=== PATIENT | male | born 1960 | race Two or more races ===

== ENCOUNTER 2016-09-09 18:37 | Inpatient (IN) | payer MEDICARE, MEDICAID ==
[~2016-09-09] VITALS: Ht 177.8 cm; Wt 149.0 kg
[~2016-09-09 18:37] MED LIST: AMPI500C59 PO; ATOR10TA PO; CARV25TA55 PO; CHOL10006 PO; CLON0.2D6 TD; FURO20TA3 PO; GABA-498 PO; HYDR500T13 PO; INSUINJ49 SC; LOR05T PO; LOSA100T27 PO; MAGN400C3 PO; METF-314 PO; OMEP20TA44 PO; Pantoprazole Sodium Sesquihydr PO; TIZA4CAP7 PO
[2016-09-09 21:48] LABS: Urine Bilirubin Negative (Negative); Urine Blood Negative /uL (Negative); Urine Color Yellow (Yellow); Urine Glucose TRACE mg/dL (Normal); Urine Hyaline Cast FEW /lpf (0 - 2); Urine Ketone Negative (Negative); Urine Mucus FEW (None Seen); Urine Nitrite Negative (Negative); Urine RBC 1 /hpf (0 - 3); Urine Squamous Epithelial Cell FEW /hpf (<5); Urine Urobilinogen Normal (Negative)
[2016-09-09 22:33] LABS: Basophils # (auto) 0.1 uL; Basophils % (auto) 0.5 % (0.0-2.0); DEFINITIVE VIEW TRANSMISSION; Eosinophils % (auto) 8.7 % (0.0-7.0); Hematocrit 36.6 % (41.0-53.0); Hemoglobin 11.9 g/dL (13.5-17.5); Lymphocytes # (auto) 2.8 uL; Lymphocytes % (auto) 23.6 % (10.0-50.0); Mean Corpuscular Hemoglobin 25.8 pg (28.0-32.0); Mean Corpuscular Hgb Conc. 32.4 g/dL (32.0-36.0); Mean Corpuscular Volume 79.7 fL (80.0-100.0); Mean Platelet Volume 8.7 fL (7.4-10.4); Monocytes # (auto) 0.6 uL; Monocytes % (auto) 5.3 % (0.0-12.0); Neutrophils # (auto) 7.4 uL; Neutrophils % (auto) 61.9 % (37.0-80.0); Platelet Count (auto) 302 10^3/uL (140-450); Red Cell Distribution Width 15.7 % (11.6-16.0); White Blood Cell 11.9 10^3/uL (4.4-10.8)
[2016-09-09] MEDS ORDERED: HYDROmorphone HCL 2 MG/ML VL IV ONE (23:00)
[2016-09-09] MEDS ORDERED: ONDANSETRON HCL 4 MG/2 ML VIAL IV ONE (23:00)
[2016-09-09 23:04] LABS: Albumin 3.2 g/dL (3.4-5.0); Bilirubin, Total 0.4 mg/dL (0.2-1.0); Calcium 9.3 mg/dL (8.5-10.1); Potassium 3.8 mmol/L (3.5-5.1); Total Protein 7.1 g/dL (6.4-8.2)
[2016-09-10] MEDS ORDERED: PROMETHAZINE HCL 25 MG/ML 1ML IV ONE (01:15)
[2016-09-10] MEDS ORDERED: HYDROmorphone HCL 2 MG/ML VL IV ONE (01:15)
[2016-09-10] MEDS ORDERED: ONDANSETRON HCL 4 MG/2 ML VIAL IV PRN (03:45)
[2016-09-10] MEDS ORDERED: HYDROcodone-ACET 5/325MG TAB PO PRN (03:45)
[2016-09-10] MEDS ORDERED: TEMAZEPAM 15 MG CAP PO PRN (03:45)
[2016-09-10] MEDS ORDERED: ACETAMINOPHEN 325 MG TAB PO PRN (03:45)
[2016-09-10] MEDS ORDERED: DEXTROSE (50%) 50ML SYRG IV PRN (03:45)
[2016-09-10] MEDS ORDERED: DOCUSATE SOD 100 MG CAP PO PRN (03:45)
[2016-09-10] MEDS ORDERED: cloNIDine HCL 0.1 MG TAB PO PRN (03:45)
[2016-09-10 04:50] VITALS: BP 125/79
[2016-09-10 05:00] VITALS: BP 125/79
[2016-09-10] MEDS: GABAPENTIN 400 MG CAP PO SCH ×3 (05:34→21:59)
[2016-09-10] MEDS: ACCU-CHEK COMFORT CURVE STRIP VI SCH ×4 (05:42→23:33)
[2016-09-10] MEDS: MORPHINE SULF INJ 2 MG/ML SYRINGE 1ML IV PRN ×4 (05:43→22:00)
[2016-09-10] MEDS: InsuLIN REG 1unit/0.01ml Soln (100units/ml) SC SCH ×3 (05:55→17:16)
[2016-09-10 09:02] VITALS: BP 114/62
[2016-09-10] MEDS: PANTOPRAZOLE 40 MG TAB PO SCH (09:37)
[2016-09-10] MEDS: ENOXAPARIN SOD 40 MG/0.4 ML SYRINGE SC SCH (09:37)
[2016-09-10] MEDS: ASPirin 81 mg TAB PO SCH (09:37)
[2016-09-10] MEDS: NITROFURANTOIN (MONO) 100 mg CAP PO SCH ×2 (09:37→21:59)
[2016-09-10] MEDS: LOSARTAN POTASSIUM 50 MG TAB PO SCH (09:38)
[2016-09-10] MEDS: CARVEDILOL 12.5 MG TAB PO SCH ×3 (09:39→21:58)
[2016-09-10] MEDS: FUROSEMIDE 20 MG TAB PO SCH (09:39)
[2016-09-10 12:54] VITALS: BP 148/97
[2016-09-10 16:55] VITALS: BP 139/81
[2016-09-10 20:14] LABS: Urine Bilirubin Negative (Negative); Urine Blood Negative /uL (Negative); Urine Color Yellow (Yellow); Urine Glucose TRACE mg/dL (Normal); Urine Ketone Negative (Negative); Urine Nitrite Negative (Negative); Urine RBC <1 /hpf (0 - 3); Urine Squamous Epithelial Cell FEW /hpf (<5); Urine Urobilinogen Normal (Negative)
[2016-09-10] MEDS: ATORVASTATIN 20 MG TAB PO SCH (21:59)
[2016-09-10 22:00] VITALS: BP 158/91
[2016-09-10] MEDS ORDERED: ATORVASTATIN 20 MG TAB PO SCH (22:00)
[2016-09-11] MEDS: InsuLIN REG 1unit/0.01ml Soln (100units/ml) SC SCH ×4 (00:10→17:53)
[2016-09-11 05:00] VITALS: BP 93/68
[2016-09-11] MEDS: GABAPENTIN 400 MG CAP PO SCH ×3 (05:15→22:21)
[2016-09-11] MEDS: ACCU-CHEK COMFORT CURVE STRIP VI SCH ×3 (05:25→17:03)
[2016-09-11] MEDS: MORPHINE SULF INJ 2 MG/ML SYRINGE 1ML IV PRN ×5 (05:34→22:23)
[2016-09-11 07:53] LABS: Basophils # (auto) 0.2 uL; DEFINITIVE VIEW TRANSMISSION; Eosinophils # (auto) 0.9 uL; Eosinophils % (auto) 9.6 % (0.0-7.0); Hematocrit 36.7 % (41.0-53.0); Hemoglobin 11.9 g/dL (13.5-17.5); Lymphocytes # (auto) 1.8 uL; Lymphocytes % (auto) 20.5 % (10.0-50.0); Mean Corpuscular Hemoglobin 25.9 pg (28.0-32.0); Mean Corpuscular Hgb Conc. 32.3 g/dL (32.0-36.0); Mean Corpuscular Volume 80.2 fL (80.0-100.0); Mean Platelet Volume 9.5 fL (7.4-10.4); Monocytes # (auto) 0.3 uL; Monocytes % (auto) 3.3 % (0.0-12.0); Neutrophils # (auto) 5.8 uL; Platelet Count (auto) 267 10^3/uL (140-450); Red Cell Distribution Width 14.7 % (11.6-16.0)
[2016-09-11 07:55] LABS: Basophils % (auto) 0.9 % (0.0-2.0); Neutrophils % (auto) 65.7 % (37.0-80.0)
[2016-09-11 08:05] LABS: Albumin 3.2 g/dL (3.4-5.0); BUN/Creatinine Ratio 21.8; Bilirubin, Total 0.6 mg/dL (0.2-1.0); Calcium 8.9 mg/dL (8.5-10.1); Potassium 3.9 mmol/L (3.5-5.1); Total Protein 7.1 g/dL (6.4-8.2); Uric Acid 5.8 mg/dL (3.5-7.2)
[2016-09-11 09:00] VITALS: BP 153/60
[2016-09-11] MEDS: ENOXAPARIN SOD 40 MG/0.4 ML SYRINGE SC SCH (09:42)
[2016-09-11] MEDS: PANTOPRAZOLE 40 MG TAB PO SCH (09:42)
[2016-09-11] MEDS: NITROFURANTOIN (MONO) 100 mg CAP PO SCH ×2 (09:42→22:21)
[2016-09-11] MEDS: FUROSEMIDE 20 MG TAB PO SCH (09:42)
[2016-09-11] MEDS: ASPirin 81 mg TAB PO SCH (09:43)
[2016-09-11] MEDS: LOSARTAN POTASSIUM 50 MG TAB PO SCH (09:43)
[2016-09-11] MEDS: CARVEDILOL 12.5 MG TAB PO SCH ×2 (09:44→22:22)
[2016-09-11 13:00] VITALS: BP 146/77
[2016-09-11 17:00] VITALS: BP 129/75
[2016-09-11 21:43] VITALS: BP 130/69
[2016-09-11] MEDS: ATORVASTATIN 20 MG TAB PO SCH (22:22)
[2016-09-12] MEDS: ACCU-CHEK COMFORT CURVE STRIP VI SCH ×4 (00:32→17:36)
[2016-09-12] MEDS: InsuLIN REG 1unit/0.01ml Soln (100units/ml) SC SCH ×4 (00:33→18:21)
[2016-09-12] MEDS: MORPHINE SULF INJ 2 MG/ML SYRINGE 1ML IV PRN ×4 (03:33→17:56)
[2016-09-12 05:00] VITALS: BP 143/82
[2016-09-12] MEDS: GABAPENTIN 400 MG CAP PO SCH ×2 (06:17→14:47)
[2016-09-12 07:57] VITALS: BP 152/85
[2016-09-12] MEDS: NITROFURANTOIN (MONO) 100 mg CAP PO SCH (09:31)
[2016-09-12] MEDS: PANTOPRAZOLE 40 MG TAB PO SCH (09:31)
[2016-09-12] MEDS: ASPirin 81 mg TAB PO SCH (09:31)
[2016-09-12] MEDS: LOSARTAN POTASSIUM 50 MG TAB PO SCH (09:31)
[2016-09-12] MEDS: FUROSEMIDE 20 MG TAB PO SCH (09:32)
[2016-09-12] MEDS: ENOXAPARIN SOD 40 MG/0.4 ML SYRINGE SC SCH (09:32)
[2016-09-12] MEDS: CARVEDILOL 12.5 MG TAB PO SCH (09:32)
[2016-09-12 12:32] VITALS: BP 133/84
[2016-09-12 16:09] VITALS: BP 142/84
== END 2016-09-12 22:00 | disposition short-term general hospital (02) | DRG 92 ==
LOC: EDUNIT# 18:37 → ER 18:44 → OVERFLOW 18:45 → WEST WING 09-10 04:59
PROVIDERS: ADMIT Nurse Practitioner; ATTEND Internal Medicine Pulmonary Disease
DX: G95.29 Other cord compression (principal); Z68.42 Body mass index [BMI] 45.0-49.9, adult; N39.0 Urinary tract infection, site not specified; E44.1 Mild protein-calorie malnutrition; I69.354 Hemiplegia and hemiparesis following cerebral infarction affecting left non-dominant side; R53.1 Weakness; I12.9 Hypertensive chronic kidney disease with stage 1 through stage 4 chronic kidney disease, or unspecified chronic kidney disease; N18.3 Chronic kidney disease, stage 3 (moderate); E66.01 Morbid (severe) obesity due to excess calories; D50.9 Iron deficiency anemia, unspecified; E78.5 Hyperlipidemia, unspecified; F40.240 Claustrophobia; G20 Parkinson's disease; G47.30 Sleep apnea, unspecified; G89.29 Other chronic pain; M47.9 Spondylosis, unspecified; M48.06 Spinal stenosis, lumbar region; E11.22 Type 2 diabetes mellitus with diabetic chronic kidney disease; E11.42 Type 2 diabetes mellitus with diabetic polyneuropathy; E11.65 Type 2 diabetes mellitus with hyperglycemia; M51.16 Intervertebral disc disorders with radiculopathy, lumbar region; Z79.82 Long term (current) use of aspirin; Z83.3 Family history of diabetes mellitus; Z93.3 Colostomy status; Z98.890 Other specified postprocedural states; Z90.49 Acquired absence of other specified parts of digestive tract; Z88.8 Allergy status to other drugs, medicaments and biological substances
CPT/HCPCS: 36415; 70450; 71010; 72131; 73562; 80053; 81001; 82550; 82570; 82962; 83036; 84156; 84300; 84443; 84550; 85025; 87081; 87086; 96374; 96375; 96376; J1815; J2405